=== PATIENT | male | born 1945 | race Caucasian/White ===

== ENCOUNTER → 2016-10-16 09:04 | Outpatient (CLI) | payer MEDICARE ==
[~2016-10-16 09:04] MED LIST: BAYER CHEWABLE81 MG PO; BUPROPION XL150 MG PO; CARAFATE1 G PO; CYCLOBENZAPRINE10 MG PO; FLOMAX0.4 MG PO; FLUTICASONE PRO16 GM NASAL; HYDROCODON-ACE1 EAC7 PO; LEXAPRO20 MG PO; LOVASTATIN20 MG PO; NAPROSYN500 MG PO; OMEPRAZOLE40 MG; OMEPRAZOLE40 MG PO; OXYCODONE HCL10 MG PO; PEPCID20 MG PO; VITAMIN D31000 UNIT PO; XANAX0.5 MG PO; ZYRTEC10 MG PO
[2016-11-25 16:45] VITALS: BMI 34.6
== END | disposition home or self-care (01) ==
LOC: D.RAD 09:04
DX: K30 Functional dyspepsia (principal)

== ENCOUNTER 2016-11-25 07:55 | Day surgery (SDC) | payer MEDICARE ==
[2016-11-24 11:24] LABS: HEMATOCRIT 45.8 % (42.0-54.0); HEMOGLOBIN 15.4 g/dL (13.5-17.5); MCH 30.4 pg (26.0-34.0); MCHC 33.6 g/dL (31.0-37.0); MCV 90.3 fL (80.0-100.0); MEAN PLATELET VOLUME 10.4 fL (7.4-10.4); RBC 5.07 10x6/uL (4.20-6.10); RDW 13.6 % (11.5-14.5); WBC 6.2 10x3/uL (4.8-10.8)
[~2016-11-25] VITALS: Ht 175.3 cm; Wt 106.4 kg
[2016-11-25] VITALS (11 sets, daily range): BP systolic 108–137; BP diastolic 55–77; Ht 175.3 cm; Wt 106.4 kg
[~2016-11-25 07:55] MED LIST changes: -BAYER CHEWABLE81 MG PO; -BUPROPION XL150 MG PO; -CYCLOBENZAPRINE10 MG PO; -FLOMAX0.4 MG PO; -FLUTICASONE PRO16 GM NASAL; -HYDROCODON-ACE1 EAC7 PO; -LEXAPRO20 MG PO; -LOVASTATIN20 MG PO; -NAPROSYN500 MG PO; -OMEPRAZOLE40 MG; -OMEPRAZOLE40 MG PO; -OXYCODONE HCL10 MG PO; -VITAMIN D31000 UNIT PO; -XANAX0.5 MG PO; -ZYRTEC10 MG PO
[2016-11-25] MEDS ORDERED: OMEPRAZOLE40 MG (08:33)
[2016-11-25] MEDS ORDERED: OMEPRAZOLE40 MG PO (08:34)
[2016-11-25] MEDS ORDERED: BUPROPION XL150 MG PO (08:35)
[2016-11-25] MEDS ORDERED: XANAX0.5 MG PO (08:35)
[2016-11-25] MEDS ORDERED: FLOMAX0.4 MG PO (08:56)
[2016-11-25] MEDS ORDERED: LOVASTATIN20 MG PO (08:57)
[2016-11-25] MEDS ORDERED: LEXAPRO20 MG PO (08:57)
[2016-11-25] MEDS ORDERED: BAYER CHEWABLE81 MG PO (08:58)
[2016-11-25] MEDS ORDERED: CYCLOBENZAPRINE10 MG PO (08:58)
[2016-11-25] MEDS ORDERED: FLUTICASONE PRO16 GM NASAL (08:59)
[2016-11-25] MEDS ORDERED: ZYRTEC10 MG PO (08:59)
[2016-11-25] MEDS ORDERED: NAPROSYN500 MG PO (09:00)
[2016-11-25] MEDS ORDERED: VITAMIN D31000 UNIT PO (09:00)
--- NOTE | 2016-11-25 13:57 | NUR ---
DR. DUKE ASST WITH EGD WHILE DR. CORNEJO WORKS LAPAROSCOPIC TOOLS
[2016-11-25] MEDS ORDERED: HYDROCODON-ACE1 EAC7 PO (14:48)
--- NOTE | 2016-11-25 18:48 | NUR ---
RESTING QUIETLY, FULL LIQUID TRAY ORDERED, DENIES NEEDS
--- NOTE | 2016-11-25 19:10 | NUR ---
BEDSIDE REPORT RECEIVED AND CARE OF PT ASSUMED. PT LYING IN SEMI DUMONT'S POSITION WATCHING TV. IV IN RIGHT WRIST PATENT WITH NS INFUSING AT 75 ML / HR. POST OP VITALS STABLE. WILL MONITOR CLOSELY FOR NEEDS.
--- NOTE | 2016-11-25 20:19 | NUR ---
HS MEDICATIONS GIVEN. HS SNACK OF ICE CREAM GIVEN. WILL CONTINUE TO MONITOR FOR NEEDS. CALL LIGHT WITHIN REACH.
--- NOTE | 2016-11-25 22:00 | NUR ---
ASSESSMENT COMPLETE PER FLOW SHEET. X4 LAP INSICIONS ON ABDOMEN CLEAN , DRY AND WELL APPROXIMATED WITH DERMABOND. WILL CONTINUE TO MONIOR FOR NEEDS.
[2016-11-26] VITALS: BP 132/76
--- NOTE | 2016-11-26 00:50 | NUR ---
PT RESTING QUIETLY IN SUPINE POSITOIN. WILL CONTINUE TO MONITOR FOR NEEDS.
--- NOTE | 2016-11-26 03:30 | NUR ---
PT UNABLE TO VOID. ORDER FOR IN AND OUT CATH RECEIVED AND PERFORMED WITH RETURN OF 1,000 ML OF DARK YELLOW URINE. PT TOLERATED WELL. WILL CONTINUE TO MONITOR FOR NEEDS.
[2016-11-26 04:00] VITALS: BP 116/76
--- NOTE | 2016-11-26 06:06 | NUR ---
ALL NEEDS MET DURING SHIFT. CONTINUE PLAN OF CARE.
[2016-11-26 06:13] LABS: BASOPHILS 0 % (0.0-2.0); EOSINOPHILS 0 % (0-7); IMMATURE GRANULOCYTES 0.2 % (0-5); LYMPHOCYTES 4.9 % (15-50); MCH 30.4 pg (26.0-34.0); MCHC 33.5 g/dL (31.0-37.0); MCV 90.6 fL (80.0-100.0); MEAN PLATELET VOLUME 10.8 fL (7.4-10.4); MONOCYTES 8.2 % (2-11); NEUTROPHILS 86.7 % (40-80); PLATELET COUNT 146 10x3/uL (130-400); RDW 13.7 % (11.5-14.5)
[2016-11-26 06:18] LABS: HEMATOCRIT 35.8 % (42.0-54.0); RBC 3.95 10x6/uL (4.20-6.10)
[2016-11-26 06:33] LABS: CALC OSMOLALITY 280 mosm/kg (275-300); CALCIUM 7.8 mg/dL (8.5-10.1); CHLORIDE - SERUM 105 mmol/L (98-107); GLUCOSE 139 mg/dL (74-106); MAGNESIUM - SERUM 1.8 mg/dL (1.8-2.4); POTASSIUM - SERUM 4.3 mmol/L (3.5-5.1); SODIUM 140 mmol/L (136-145); UREA NITROGEN 12 mg/dL (7-18); eGFR NON AFRICAN AMERICAN 78 mL/min (90-120)
--- NOTE | 2016-11-26 07:15 | NUR ---
AWAKE ALERT DENIES ANY NEEDS AT THIS TIME LAP SITES CLEAN DRY AND INTACT AT PRESENT N/C AT THIS TIME.
[2016-11-26 08:05] VITALS: BP 121/61
--- NOTE | 2016-11-26 08:11 | OP ---
PATIENT NAME: WENCESLAO GOOD MEDICAL RECORD: [id number] :45 LOCATION:[id number] ADMISSION DATE: SURGEON: SADE CORNEJO MD DATE OF OPERATION: 11/25/2016 SURGEON: Sade Cornejo MD. PREOPERATIVE DIAGNOSES: 1. Gastroesophageal reflux disease. 2. Dysphagia. 3. History of laparoscopic gastric banding. POSTOPERATIVE DIAGNOSES: 1. Gastroesophageal reflux disease. 2. Dysphagia. 3. History of laparoscopic gastric banding. PROCEDURES PERFORMED: Laparoscopic lysis of adhesions, laparoscopic removal of gastric band and subcutaneous port, esophagogastroduodenoscopy done by Dr. Parks. ANESTHESIA: General. COMPLICATIONS: None. SPECIMENS: Gastric band and subcutaneous port. ESTIMATED BLOOD LOSS: 300 cc. Case was clean. OPERATIVE COURSE: After consent was obtained, the patient was taken to the operating room and placed in supine position on the operating table. Next, general anesthesia was given via endotracheal intubation after a timeout was performed that confirmed the correct patient and procedure. The abdomen was then prepped and draped in typical sterile fashion. Local anesthetic was injected just above the umbilicus. A stab incision was made with 11-blade scalpel. Using a 5-mm bladeless optical trocar, the abdomen was entered under direct laparoscopic vision. Adequate pneumoperitoneum was achieved. The abdominal cavity was inspected. There was no evidence of bowel injury. No evidence of bleeding. At this time, all remaining trocars were placed. Two 5-mm trocars in the right lateral quadrant, 5-mm trocar in the left lateral quadrant, Sven retractor in the subxiphoid position. The left lobe of the liver was retracted with the Sven retractor exposing the GE junction and was secured in place. The band was identified. Dissection of the scar tissue around the band was performed with Metzenbaum scissors as well as electrocautery. There was incomplete transection of one of the short gastric vessels that were used to reinforce the wrap. Bleeding was controlled with a grasper. The vessel was tied off with a 3-0 Vicryl suture intracorporeally. Once the bleeding was controlled, dissection continued. The right crura was identified. The band was disconnected at the joint and unlocked. It was slid out through the tract that was created around the stomach, it was laid into the left upper quadrant. Prior to removal of the band, the lower esophagus and stomach were dissected, they had herniated into the mediastinum. Full circumferential dissection was performed. Once the right crura was identified, OPERATIVE REPORT [id number] WENCESLAO GOOD we dissected posteriorly until we identified the left crura and we were able to elevate the esophagus superiorly. Next, dissection continued anteriorly crossed over the esophagus allowing circumdental dissection. At this time, we were able to reduce the stomach and GE junction into the abdominal cavity. The band was removed and placed in the left upper quadrant. There was significant scarring and fibrous bands in place. At this time, it was decided to perform an EGD. The EGD scope was unable to be passed at the GE junction due to the stricture and scarring. There was a significant amount of retained food in the lower esophagus during the EGD. The EGD was performed by my partner, Dr. Parks, this will be dictated in a separate operative note. Dissection of the fibrous bands was performed again with the Harmonic scalpel as well as the Metzenbaum scissors and electrocautery until all fibrous bands were taken down and the cardia of the stomach was able to be placed anatomically towards the left upper quadrant. At this time, the stomach and cardia were untwisted. The scope was easily traversed across the GE junction. The patient was placed in steep Trendelenburg position. The upper abdomen was filled with irrigation, the stomach and GE junction were insufflated. There was no evidence of leak. There are no air bubbles identified. The stomach was expanded to a normal size and was quite taut. At this time, the scope was withdrawn to the GE junction and advanced several times to make sure there were no injuries identified. All the remaining irrigation was suctioned from the abdomen. The EGD portion of the procedure was terminated at this time. Please see Dr. Parks's operative report. At this time, the entire abdominal cavity was irrigated and suctioned. Careful attention was paid to hemostasis. There was no evidence of bowel injury. No evidence of bleeding. At this time, the Sven retractor was removed under direct fluoroscopic vision. The instruments removed. Trocars were removed. Skin was closed with 4-0 Monocryl, Mastisol and Steri-Strips. The left upper quadrant incision was made over the subcutaneous port with a 15-blade scalpel. Dissection continued down to the level of the external oblique fascia with electrocautery. Cabrera retractors were placed, the ports identified. It was dissected out the external oblique fascia. The port and the gastric band were removed in a single piece and sent for permanent pathology. The external oblique fascia was then closed. The fascia was then closed with a 0 Prolene suture. Subcutaneous tissue was closed with 3-0 Vicryl. The skin was closed with 4-0 Monocryl, Mastisol and Steri-Strips. At the end of the case, all needle and instrument counts were correct. No complications occurred. The patient was extubated and transferred to PACU in stable condition. TRANSINT:[id number] Voice Confirmation ID: [id number] DOCUMENT ID: [id number] SADE CORNEJO MD at 0811 CC: [id number] DICTATION DATE: 11/25/16 1446 INCIDENT ENGINEER: 11/25/16 [address]32 [id number] [place] [address]
[2016-11-26] MEDS ORDERED: OXYCODONE HCL10 MG PO ×2 (08:46→08:48)
--- NOTE | 2016-11-26 09:00 | NUR ---
MEDS GIVEN NICOLE WELL AT PRESENT DENIES ANY NEEDS.
--- NOTE | 2016-11-26 11:00 | NUR ---
QUIET IN ROOM AT PRESENT DENIES ANY NEEDS AT PREENT.
--- NOTE | 2016-11-26 12:44 | NUR ---
DISCHARGE INSTRUCTIONS GONE OVER WITH PT AND AT PRESENT DEMONSTRATES UNDERSTANDING AT PRESENT.LEFT VIA W/C AT PRESENT.
--- NOTE | 2016-11-27 09:40 | OP ---
PATIENT NAME: WENCESLAO GOOD MEDICAL RECORD: [id number] :45 LOCATION:D.OPS ADMISSION DATE: SURGEON: TUSHAR DUKE MD DATE OF OPERATION: 11/25/2016 PREOPERATIVE DIAGNOSES: 1. Gastroesophageal reflux. 2. Esophagitis. 3. Complications of gastric banding. POSTOPERATIVE DIAGNOSES: 1. Gastroesophageal reflux. 2. Esophagitis. 3. Complications of gastric banding. PROCEDURE: Esophagogastroduodenoscopy. SURGEON: Tushar Duke MD. OPERATIVE COURSE: I was asked to see this patient while he was already under anesthesia. He was being operated on Dr. Simmons. Dr. Simmons needed someone to run the gastroscope while he manipulated the stomach laparoscopically. The gastroscope had already been inserted to a dilated esophagus. I was able to negotiate the gastroscope into the stomach and duodenum. There were some food material within the stomach as well as some residual food material within the esophagus that I flushed this away. He then instilled normal saline into the upper abdomen, placed the patient in steep Trendelenburg and I insufflated the stomach. There was no bubbling. I then desufflated the stomach and desufflated the esophagus while withdrawing the gastroscope. TRANSINT:[id number] Voice Confirmation ID: [id number] DOCUMENT ID: [id number] TUSHAR DUKE MD at 0940 CC: [id number] DICTATION DATE: 11/25/16 151 PROVIDER ENROLLMENT SPECIALIST: 11/25/162229 [facility] 11/26/16 [id number] [place] [address]
== END 2016-11-26 12:48 | disposition home or self-care (01) ==
LOC: D.OPS 07:55 → D.MS 07:55 → D.OPS 09:50 → D.PAN 10:00 → D.OPS 11:00 → D.MS 15:45 → D.OPS 11-26 12:48
PROVIDERS: Anesthesiology; Surgery
DX: K21.0 Gastro-esophageal reflux disease with esophagitis (principal); K95.09 Other complications of gastric band procedure; Y84.8 Other medical procedures as the cause of abnormal reaction of the patient, or of later complication, without mention of misadventure at the time of the procedure; R13.10 Dysphagia, unspecified; K44.9 Diaphragmatic hernia without obstruction or gangrene; F41.9 Anxiety disorder, unspecified; Z79.82 Long term (current) use of aspirin; Z79.1 Long term (current) use of non-steroidal anti-inflammatories (NSAID); Z79.891 Long term (current) use of opiate analgesic; Z79.899 Other long term (current) drug therapy

== ENCOUNTER 2016-12-05 14:18 | Emergency (ER) | payer MEDICARE ==
[2016-11-25 16:45] VITALS: BMI 34.6
[~2016-12-05 14:18] MED LIST changes: +BAYER CHEWABLE81 MG PO; +BUPROPION XL150 MG PO; +CYCLOBENZAPRINE10 MG PO; +FLOMAX0.4 MG PO; +FLUTICASONE PRO16 GM NASAL; +HYDROCODON-ACE1 EAC7 PO; +LEXAPRO20 MG PO; +LOVASTATIN20 MG PO; +NAPROSYN500 MG PO; +OMEPRAZOLE40 MG; +OMEPRAZOLE40 MG PO; +OXYCODONE HCL10 MG PO; +VITAMIN D31000 UNIT PO; +XANAX0.5 MG PO; +ZYRTEC10 MG PO
== END 2016-12-05 17:15 | disposition home or self-care (01) ==
LOC: D.ER 14:18
DX: L03.311 Cellulitis of abdominal wall (principal)

== ENCOUNTER → 2016-12-24 20:31 | Emergency (ER) | payer MEDICARE | END | disposition home or self-care (01) | LOC: D.ER 20:31 | DX: L03.311 Cellulitis of abdominal wall (principal) ==

== ENCOUNTER → 2017-12-17 08:11 | Outpatient (CLI) | payer MEDICARE ==
[2016-11-25 16:45] VITALS: BMI 34.6
[~2017-12-17 08:11] MED LIST changes: +AZOR 5-40 MG TA1 TAB PO; +NORVASC2.5 MG PO; +PLAVIX75 MG PO
== END | disposition home or self-care (01) ==
LOC: D.RAD 08:11
DX: R05 Cough (principal)

== ENCOUNTER → 2018-01-03 08:31 | Outpatient (CLI) | payer MEDICARE ==
[2016-11-25 16:45] VITALS: BMI 34.6
== END | disposition home or self-care (01) ==
LOC: D.RAD 12-31 09:00
DX: K21.0 Gastro-esophageal reflux disease with esophagitis (principal)

== ENCOUNTER 2018-01-31 11:08 | Outpatient (CLI) | payer MEDICARE ==
[~2018-01-31] VITALS: Ht 175.3 cm; Wt 113.6 kg
--- NOTE | ~2018-01-31 | HEMODYNAMI ---
PATIENT:WENCESLAO GOOD MEDICAL RECORD: [id number] : 45 LOCATION:[facility] ADMISSION DATE: 01/31/18 Generatedon:01/31/201814:57 Patient name: WENCESLAO GOOD Patient #: [id number] SSN: DO B: 1945 Date of study: 01/31/2018 Page: Of Hemodynamic Procedure Report Patient Data Patient Demographics Procedure consent was obtained First Name: WENCESLAO Gender: Male Last Name: FLORENTINO : 1945 Middle Initial: GULSHAN Age: 72 year(s) Patient #: [id number] Race: Additional ID: [id number] Contact details [address]: [address] [place] [address] State: [place] City: [place] Zip code: [address] Admission Admission Data Admission Date: 01/31/2018 Admission Time: 11:08 Procedure Procedure Types Cath Procedure Diagnostic Procedure LHC LHC w/Coronaries Sedation Charges Moderate Sedation up to 45 minutes PCI Procedure Coronary Stent Coronary Stent Initial Procedure Description Procedure Date Procedure Date: 01/31/2018 Procedure Start Time: 14:07 Procedure End Time: 14:53 Procedure Staff Name Function Tyree Britt MD Performing Physician Morenita Gifford RT Monitor Vilma Tubbs RT Scrub Saul Crane RN Nurse Procedure Data Cath Procedure Fluoroscopy Diagnostic fluoroscopy Total fluoroscopy Time: time: 13.5 min 13.5 min Diagnostic fluoroscopy Total fluoroscopy dose: dose: 3046 mGy 3046 mGy Contrast Material Contrast Material Type Amount (ml) Isovue 300 238 Entry Location Entry Primary Successful Side Size Upsize Upsize Entry Closure Noel ccessful Closure Location (Fr) 1 (Fr) 2 (Fr) Remarks Device Remarks Radial Right 6 Fr Mechanical artery Short Compression Estimated blood loss: 5 ml Diagnostic catheters Device Type Used For End Catheter Placement DIAGNOSTIC Zane 110cm Multi-vessel 5Fr catheter ([id number]) Angiography DIAGNOSTIC AR MOD 5Fr Right Coronary Catheter ([id number]) Angiography DIAGNOSTIC Pigtail 5Fr LV Angiography catheter ([id number]) DIAGNOSTIC AR 2 MOD 5 Fr Right Coronary catheter ([id number]) Angiography Procedure Complications No complications Procedure Medications Medication Administration Route Dosage Oxygen etCO2 Nasal cannula 2 l/min Heparin Flush Bag added to field 2 bags (1000units/500ml NS) 0.9% NaCl I.V. 100 ml/hr Radial Cocktail added to field 1 syringe (Verapomil 2mg/Nitro 400mcg/Heparin 1500units) Fentanyl I.V. 50 mcg Versed I.V. 1 mg Radial Cocktail I.A. 1 syringe (Verapomil 2mg/Nitro 400mcg/Heparin 1500units) Fentanyl I.V. 50 mcg Versed I.V. 1 mg Heparin Bolus I.V. 11075 units Fentanyl I.V. 25 mcg Nitroglycerin IC/IA I.C. 100 mcg Plavix P.O. 600 mg Hemodynamics Rest Heart Rate: 66 (bpm) Pressure Samples Time Site Value (mmHg) Purpose Heart Use Rate(bpm) 14:11 LV 126/45,41 Snapshot 64 14:15 LV 118/-11,5 Snapshot 82 14:18 LV 103/-1,2 Snapshot 84 14:19 AO 74/74(50) Pullback 72 14:19 LV 114/-11,4 Pullback 72 Gradients Valve Time Site 1 Site 2 Mean SEP/DFP Peak To Heart Use (mmHg) (sec/min) Peak Rate (mmHg) (bpm) Aortic 14:12 LV AO 43 Aortic 14:19 LV AO 46 19 40 72 114/-11,4 74/74(50) Calculations Valve P-P Mean Valve Index Valve Source Name Gradient Area Flow (cm2) Aortic 40 46 40 46 Snapshots Pre Cath Intra NCS Post Cath Vital Signs Time Heart Resp SPO2 etCO2 NIBP (mmHg) Rhythm Pain Sedation Rate (ipm) (%) (mmHg) Status Level (bpm) 13:52:11 70 18 95 0 114/75(86) NSR 0 (11) 10(A) , No pain 13:56:21 73 18 95 26.2 116/70(102) NSR 0 (11) 10(A) , No pain 14:00:27 66 17 95 29.9 107/77(89) NSR 0 (11) 10(A) , No pain 14:04:33 74 17 87 34.4 109/73(94) NSR 0 (11) 10(A) , No pain 14:09:07 71 12 90 0 125/85(96) NSR 0 (11) 10(A) , No pain 14:13:07 91 12 96 0 129/94(122) NSR 0 (11) 9(A) , No pain 14:17:13 78 17 95 0.7 100/68(87) NSR 0 (11) 9(A) , No pain 14:21:16 75 16 95 0.7 108/72(85) NSR 0 (11) 9(A) , No pain 14:25:20 75 16 95 38.9 115/74(86) NSR 0 (11) 9(A) , No pain 14:29:26 75 18 95 29.2 108/74(87) NSR 0 (11) 9(A) , No pain 14:33:38 74 16 95 42.6 91/63(83) NSR 0 (11) 9(A) , No pain 14:37:41 72 16 96 34.5 104/68(81) NSR 0 (11) 9(A) , No pain 14:41:47 74 18 93 35.2 104/70(80) NSR 0 (11) 9(A) , No pain 14:45:55 73 16 95 0 102/68(92) NSR 0 (11) 9(A) , No pain 14:50:03 72 17 95 20.2 104/65(84) NSR 0 (11) 9(A) , No pain 14:54:11 69 17 95 27.7 108/64(84) NSR 0 (11) 9(A) , No pain Medications Time Medication Route Dose Verified Delivered Reason Not es Effectiveness by by 13:52:46 Oxygen etCO2 2 l/min Tyree Saul Per physician Nasal Balwinder Crane RN cannula 13:52:54 Heparin Flush added 2 bags Tyree Saul used for Bag to Balwinder Crane RN procedure (1000units/500ml field NS) 13:53:02 0.9% NaCl I.V. 100 Tyree Saul Per physician ml/hr Balwinder Crane RN 13:53:10 Radial Cocktail added 1 Tyree Saul used for (Verapomil to syringe Balwinder Crane RN procedure 2mg/Nitro field 400mcg/Heparin 1500units) 14:05:50 Fentanyl I.V. 50 mcg Tyree Saul for sedation Balwinder Crane RN 14:06:04 Versed I.V. 1 mg Tyree Saul for sedation Balwinder Crane RN 14:08:59 Radial Cocktail I.A. 1 Tyree Tyree for (Verapomil syringe Balwinder Britt MD vasodilation 2mg/Nitro 400mcg/Heparin 1500units) 14:09:04 Fentanyl I.V. 50 mcg Tyree Saul for sedation Balwinder Crane RN 14:09:09 Versed I.V. 1 mg Tyree Saul for sedation Balwinder Crane RN 14:29:01 Heparin [place]us [place].V. 84715 Tyree Saul for units Balwinder Crane RN anticoagulation 14:37:03 Fentanyl I.V. 25 mcg Tyree Saul for sedation Balwinder Crane RN 14:48:07 Nitroglycerin I.C. 100 mcg Tyree Tyree for IC/IA Balwinder Britt MD vasodilation 14:55:11 Plavix P.O. 600 mg Tyree Saul for Balwinder Crane RN antiplatelet therapy Procedure Log Time Note 13:30:30 Vilma Tubbs RT(R) sent for patient. Start room use. 13:40:02 Informed consent obtained and on chart 13:40:06 Diagnostic Cath Status : Elective 13:40:30 Time tracking: Regular hours (M-F 7:00 - 5:00) 13:40:34 Plan of Care:Hemodynamics will remain stable., Cardiac rhythm will remain stable., Comfort level will be maintained., Respiratory function will remain adequate., Patient/ family verbilizes understanding of procedure., Procedure tolerated without complication., Recovers from procedure without complications.. 13:41:51 Patient received from Pre/Post Procedure Room to [facility] 2 Alert and oriented. Tansferred to table in Supine position. 13:41:52 Warm blankets applied, and samy hugger turned on for patient comfort. 13:41:52 Correct patient and procedure confirmed by team. 13:41:53 ECG and BP/O2 sat monitors applied to patient. 13:51:10 Vital chart was started 13:52:46 Oxygen 2 l/min etCO2 Nasal cannula was administered by Saul Crane RN; Per physician; 13:52:54 Heparin Flush Bag (1000units/500ml NS) 2 bags added to field was administered by Saul Crane RN; used for procedure; 13:53:02 0.9% NaCl 100 ml/hr I.V. was administered by Saul Crane RN; Per physician; 13:53:10 Radial Cocktail (Verapomil 2mg/Nitro 400mcg/Heparin 1500units) 1 syringe added to field was administered by Saul Crane RN; used for procedure; 13:58:25 Baseline sample Acquired. 13:58:30 Rhythm: sinus rhythm 13:58:31 Full Disclosure recording started 13:58:37 H&P Date Dictated: 01/31/2018 H&P Addendum completed by physician on day of procedure. (MUST COMPLETE FOR ALL OUTPATIENTS), ER History on chart.. 13:58:38 Pre-procedure instructions explained to patient. 13:58:39 Pre-op teaching completed and patient verbalized understanding. 13:58:40 Family unavailable. 13:58:43 Patient NPO since Midnight. 13:58:45 Is the patient allergic to Iodine/contrast media? No. 13:58:46 Was the patient premedicated? No 13:58:47 Is patient on blood thinner?No 13:58:48 Patient diabetic? No. 14:00:13 Previous problem with sedation/anesthesia? No ? 14:00:15 Snore? Yes 14:00:16 Sleep apnea? No 14:00:16 Deviated septum? No 14:00:18 Opens mouth fully? Yes 14:00:19 Sticks out tongue? Yes 14:00:20 Airway obstruction? No ? 14:00:23 Dentures? No ? 14:00:43 Pre procedure: right dorsailis pedis pulse 2+ Normal; easily identifiable; not easily obliterated 14:00:46 Pre procedure: left dorsailis pedis pulse 2+ Normal; easily identifiable; not easily obliterated 14:00:55 Modified Manish's test Radial < 7 seconds 14:00:58 Patient pain scale 0/10 ?. 14:01:03 IV patent on arrival in left forearm with 0.9% NaCl at [facility]. 14:01:05 Lab results completed and on chart. 14:01:09 Right Radial & Right Groin area was prepped with chlora-prep and draped in sterile fashion 14:01:10 Alarms reviewed by R. N. 14:01:10 Sharps counted by scrub and verified by R.N. 14:01:12 Physician arrived 14::12 --------ALL STOP TIME OUT------ 14::12 Final Timeout: patient, procedure, and site verified with staff and physician. All members of the team are in agreement. 14:01:14 Right Radial & Right Groin site verified by team. 14:01:18 Physical assessment completed. ASA score P 2 - A patient with mild systemic disease as per Tyree Britt MD. 14:01:21 Sedation plan: IV Moderate Sedation Medication:Versed, Fentanyl 14:01:26 Use device set Radial Dx or PCI 14:01:27 ACIST Syringe (07664) opened to sterile field. 14:01:27 Medline Cath Pack ([id number]) opened to sterile field. 14:01:27 Bag Decanter (2002S) opened to sterile field. 14:01:28 DIAGNOSTIC WIRE .035 260cm J wire (894699) opened to sterile field. 14:01:28 ACIST Hand Control (57877) opened to sterile field. 14:01:29 ACIST Manifold (96192) opened to sterile field. 14:01:29 Tegaderm 4 x 4 (1626W) opened to sterile field. 14:01:30 MBrace Wrist Support ([id number]) opened to sterile field. 14:01:30 NEEDLE Cook 21G 4cm Radial (D87511) opened to sterile field. 14:01:32 SHEATH 6Fr Prelude Radial ([id number]) opened to sterile field. 14:05:50 Fentanyl 50 mcg I.V. was administered by Saul Crane RN; for sedation; 14:06:04 Versed 1 mg I.V. was administered by Saul Crane RN; for sedation; 14:07:28 Procedure started. 14:07:34 Local anesthetic to right radial artery with Lidocaine 2% by Tyree Britt MD.INITIAL ACCESS ONLY 14:07:45 A 6 Fr Short sheath was inserted into the Right Radial artery 14:08:59 Radial Cocktail (Verapomil 2mg/Nitro 400mcg/Heparin 1500units) 1 syringe I.A. was administered by Tyree Britt MD; for vasodilation; 14:09:04 Fentanyl 50 mcg I.V. was administered by Saul Crane RN; for sedation; 14:: Versed 1 mg I.V. was administered by Saul Crane RN; for sedation; 14::19 Zero performed for pressure channel P1 14:09:44 A DIAGNOSTIC Zane 110cm 5Fr catheter (869722) was advanced over the wire and used for Multi-vessel Angiography. 14:11:58 LV hemodynamics recorded. 14:11:59 LV gram done using HERNANDEZ 14:12:02 Injector settings: Ml/sec: 5, Volume: 15, 14:13:33 LCA angiography performed. 14:13:36 Injector settings: Ml/sec: 3, Volume: 6, 14:14:54 Catheter removed. 14:18:04 A DIAGNOSTIC Pigtail 5Fr catheter (271709X) was advanced over the wire and used for LV Angiography. 14:18:59 EF : 40 % 14:19:01 Catheter removed. 14:19:48 A DIAGNOSTIC AR MOD 5Fr Catheter (990854W) was advanced over the wire and used for Right Coronary Angiography. 14:21:25 Catheter removed. unable to cannulate vessel. 14:22:11 A DIAGNOSTIC AR 2 MOD 5 Fr catheter (756203B) was advanced over the wire and used for Right Coronary Angiography. 14:24:40 RCA angiography performed. 14:24:43 Injector settings: Ml/sec: 3, Volume: 6+, 14:24:47 Catheter removed. 14:24:47 Proceeding to intervention. 14:24:58 BMW 300cm Beardsley 2 J wire (2106465I) opened to sterile field. 14:24:59 INFLATOR Merit BasixCompak (YE1866) opened to sterile field. 14:25:05 GUIDE 6FR XBLAD 4.0 catheter (10030679) opened to sterile field. 14:25:39 TUBING High Pressure Extension Tubing (Balwinder) (XI4486B) opened to sterile field. 14:27:13 6 Fr xblad 4 guide catheter was inserted over the wire 14:28:32 bmw wire advanced. 14:29:01 Heparin Bolus 48777 units I.V. was administered by Saul Crane RN; for anticoagulation; 14:31:21 Wire advanced across lesion. 14:33:26 Inflate balloon Inflation number: 1 A EUPHORA 2.0 x 20 Balloon ([id number]) was prepped and advanced across the Prox LAD, then inflated to 12 FARNAZ for 0:10 (min:sec). 14:33:49 Inflation number: 2 The EUPHORA 2.0 x 20 Balloon ([id number]) was reinflated across the Prox LAD, to 12 FARNAZ for 0:10 (min:sec). 14:37:03 Fentanyl 25 mcg I.V. was administered by Saul Crane RN; for sedation; 14:38:53 Place stent Inflation Number: 1 A ESPERANZA OTW 2.75 x 12 stent ([id number]) was prepped and advanced across the Mid LAD. The stent was deployed at 16 FARNAZ for 0:10 (min:sec). 14:39:19 Stent catheter was removed intact over wire. 14:44:47 Place stent Inflation Number: 3 A ESPERANZA OTW 3.0 x 22 stent ([id number]) was prepped and advanced across the Prox LAD. The stent was deployed at 12 FARNAZ for 0:10 (min:sec). 14:48:07 Nitroglycerin IC/IA 100 mcg I.C. was administered by Tyree Britt MD; for vasodilation; 14:49:52 Stent catheter was removed intact over wire. 14:49:53 Wire removed. 14:49:53 Guide catheter removed. 14:50:41 Sheath removed intact; hemostasis achieved with Mechanical Compression to the Right Radial artery. 14:50:43 Procedure ended.(Physican Out) 14:51:07 Fluoroscopy time 13.50 minutes. 14:51:13 Fluoroscopy dose: 3046 mGy 14:51:13 Flurop Dose total: 3046 14:51:55 Contrast amount:Isovue 300 238ml. 14:51:58 Sharps counted by scrub and verified by R.N. 14:52:02 Insertion/operative site no bleeding no hematoma. 14:52:11 Post Procedure Pulses reassessed and unchanged 14:52:17 Post procedure rhythm: unchanged. 14:52:19 Estimated blood loss: 5 ml 14:52:21 Post procedure instruction explained to patient.Patient verbalizes understanding. 14:52:21 Patient needs reinforcement of post procedure teaching. 14:53:22 Procedure type changed to Cath procedure, Diagnostic procedure, LHC, LHC w/Coronaries, Sedation Charges, Moderate Sedation up to 45 minutes, PCI procedure, Coronary Stent, Coronary Stent Initial 14:53:23 Procedure and supply charges have been captured, reviewed, submitted and are correct. 14:53:27 Procedure Complication : No complications 14:53:29 Vital chart was stopped 14:53:30 See physician's report for complete and final results. 14:53:35 Report given to Pre/Post Procedure Room. 14:53:37 Patient transfered to Pre/Post Procedure Room with Stretcher. 14:53:39 Procedure ended. 14:53:39 Full Disclosure recording stopped 14:53:46 ACC-PCI Only Patient was given prescriptions, or instructed by Tyree Britt MD to start/continue the following medications upon discharge: Plavix 14:53:48 End room use (Document Last) 14:55:11 Plavix 600 mg P.O. was administered by Saul Crane RN; for antiplatelet therapy; 14:56:38 TR BAND Standard ([id number]) opened to sterile field. Intervention Summary Intervention Notes Time ActionType Lesion and Equipment Action# Pressure Duration Attributes Used 14:33:26 Inflate Prox LAD EUPHORA 2.0 x 1 12 00:10 balloon 20 Balloon ([id number]) 14:33:49 Reinflate Prox LAD EUPHORA 2.0 x 2 12 00:10 balloon 20 Balloon ([id number]) 14:38:53 Place stent Mid LAD ESPERANZA OTW 2.75 1 16 00:10 x 12 stent ([id number]) 14:44:47 Place stent Prox LAD ESPERANZA OTW 3.0 3 12 00:10 x 22 stent ([id number]) Device Usage Item Name Manufacture Quantity Catalog Number Hospital Part Current Minimal Lot# / Charge Number Stock Stock Serial# Code ACIST Syringe Acist 1 80142 764209 925885 176932 20 (70485) [employer] Medline Cath Cardinal 1 [id number] 720898 62527 675530 5 Pack Health ([id number]) Bag Decanter Microtek 1 088427 78146 264010 5 () Medical Inc. DIAGNOSTIC WIRE St [place] 1 005575 403875 477326 625713 30 .035 260cm J wire (932497) ACIST Hand Acist 1 18100 262815 935874 449456 5 Control (50174) Medical Systems Inc ACIST Manifold Acist 1 45101 199952 879485 954146 5 (41492) [employer] Inc Tegaderm 4 x 4 3M 1 1626W 624555 340663 810185 5 (1626W) MBrace Wrist Advanced 1 140-0250-00 458640 46222 426997 5 Support Vascular ([id number]) Dynamics NEEDLE Cook 21G Cook Medical 1 P96774 906533 616794 334927 5 4cm Radial (L83967) SHEATH 6Fr Merit 1 [id number] 682878 731309 932475 5 Prelude Radial Medical ([id number]) DIAGNOSTIC Terumo 1 40-9389 678107 513324 159200 5 Zane 110cm 5Fr catheter (607572) DIAGNOSTIC AR Cardinal 1 154490N 237776 110452 953182 15 MOD 5Fr Health Catheter (767315F) DIAGNOSTIC Cardinal 1 037505I 876829 327323 015230 5 Pigtail 5Fr Health catheter (480292H) DIAGNOSTIC AR 2 Cardinal 1 903275H 631459 664212 653197 20 MOD 5 Fr Health catheter (060185N) BMW 300cm Rai 1 [id number] 474825 391421 301362 5 Beardsley 2 J Vascular wire (1541145I) INFLATOR Merit Merit 1 KO1752 889323 557371 071474 15 [facility] Medical (JC9405) GUIDE 6FR XBLAD Cardinal 1 [id number] 597960 624968 628301 3 4.0 catheter Health (28095308) TUBING High Merit 1 [id number] 281862 35502 843613 10 Pressure Medical Extension Tubing (Britt) (QC9418B) EUPHORA 2.0 x Medtronic 1 [id number] 964003 540126 766729 5 20 Balloon (OSO4750G) ESPERANZA OTW 2.75 x Medtronic 1 [id number] 406511 4098093 951870 5 [id number] 12 stent ([id number]) ESPERANZA OTW 3.0 x Medtronic 1 [id number] 686489 6362441 070242 5 [id number] 22 stent ([id number]) TR BAND Terumo 1 [id number] 279127 909697 386753 40 Standard ([id number]) Signature Audit [place] Stage Time Signature Unsigned Intra-Procedure 01/31/2018 Morenita Gifford 2:57:27 PM RT(R) Signatures Monitor : Morenita Gifford RT Signature : Date : Time : [id number] [place] [address]
[~2018-01-31 11:08] MED LIST changes: -AZOR 5-40 MG TA1 TAB PO; -NORVASC2.5 MG PO; -PLAVIX75 MG PO
[2018-01-31] MEDS ORDERED: AZOR 5-40 MG TA1 TAB PO (11:29)
[2018-01-31] MEDS ORDERED: NORVASC2.5 MG PO ×2 (11:29→11:31)
[2018-01-31 11:42] VITALS: BP 131/65; Ht 175.3 cm; Wt 113.6 kg
[2018-01-31 11:42] LABS: BASOPHILS 0.6 % (0-2); EOSINOPHILS 4.8 % (0-7); HEMATOCRIT 45.7 % (42.0-54.0); HEMOGLOBIN 15.9 g/dL (13.5-17.5); IMMATURE GRANULOCYTES 0.2 % (0-5); LYMPHOCYTES 17.7 % (15-50); MCH 31.9 pg (26.0-34.0); MCHC 34.8 g/dL (31.0-37.0); MCV 91.8 fL (80.0-100.0); MEAN PLATELET VOLUME 10.1 fL (7.4-10.4); NEUTROPHILS 66.7 % (40-80); PLATELET COUNT 178 10x3/uL (130-400); RBC 4.98 10x6/uL (4.20-6.10); RDW 12.9 % (11.5-14.5); WBC 6.2 10x3/uL (4.8-10.8)
[2018-01-31 11:58] LABS: ANION GAP 13.9 mmol/L (8-16); CALCIUM 9.3 mg/dL (8.5-10.1); CARBON DIOXIDE 26.4 mmol/L (21.0-32.0); CREATININE - SERUM 1.1 mg/dL (0.6-1.3); POTASSIUM - SERUM 4.3 mmol/L (3.5-5.1)
[2018-01-31] MEDS ORDERED: BAYER CHEWABLE81 MG PO (15:13)
[2018-01-31] MEDS ORDERED: PLAVIX75 MG PO (15:13)
== END 2018-01-31 19:12 ==
LOC: D.CATH 11:08
PROVIDERS: Internal Medicine Cardiovascular Disease
DX: I25.119 Atherosclerotic heart disease of native coronary artery with unspecified angina pectoris (principal); Z82.49 Family history of ischemic heart disease and other diseases of the circulatory system; I10 Essential (primary) hypertension; E78.5 Hyperlipidemia, unspecified; G62.9 Polyneuropathy, unspecified; K21.9 Gastro-esophageal reflux disease without esophagitis; F32.9 Major depressive disorder, single episode, unspecified; F41.9 Anxiety disorder, unspecified; Z79.82 Long term (current) use of aspirin; Z79.899 Other long term (current) drug therapy; Z01.812 Encounter for preprocedural laboratory examination
CPT/HCPCS: 93458; C9600

== ENCOUNTER 2018-02-12 07:52 | Emergency (ER) | payer MEDICARE ==
[~2018-02-12] VITALS: Ht 175.3 cm; Wt 109.1 kg
[~2018-02-12 07:52] MED LIST changes: +AZOR 5-40 MG TA1 TAB PO; +NORVASC2.5 MG PO; +PLAVIX75 MG PO
[2018-02-12 08:07] VITALS: Ht 175.3 cm; Wt 109.1 kg
[2018-02-12 09:15] VITALS: BP 130/79
== END 2018-02-12 09:14 | disposition home or self-care (01) ==
LOC: D.ER 07:52
DX: I80.8 Phlebitis and thrombophlebitis of other sites (principal); I10 Essential (primary) hypertension; K21.9 Gastro-esophageal reflux disease without esophagitis

== ENCOUNTER → 2018-12-22 08:43 | Outpatient (CLI) | payer MEDICARE ==
[2018-02-12 08:07] VITALS: BMI 35.5
== END | disposition home or self-care (01) ==
LOC: D.HCCARDIO 12-08 08:30
PROVIDERS: ATTEND Internal Medicine Cardiovascular Disease
DX: I25.10 Atherosclerotic heart disease of native coronary artery without angina pectoris (principal)